=== PATIENT | female | born 1975 | race Caucasian/White ===

== ENCOUNTER → 2018-10-26 | Outpatient (REF) | payer OTHER | LOC: M LAB REF 12:04 | PROVIDERS: ATTEND Internal Medicine Endocrinology, Diabetes & Metabolism | DX: E04.1 Nontoxic single thyroid nodule (principal) ==

== ENCOUNTER → 2019-10-30 | Outpatient (REF) | payer OTHER | LOC: M LAB REF 12:42 | PROVIDERS: ATTEND Radiology Diagnostic Radiology | DX: D48.9 Neoplasm of uncertain behavior, unspecified (principal) ==

== ENCOUNTER 2020-11-13 13:01 | Emergency (ER) | payer OTHER ==
[~2020-11-13] VITALS: Ht 157.5 cm; Wt 91.2 kg
[2020-11-13] MEDS ORDERED: SYNT75TA PO (13:12)
[2020-11-13] MEDS ORDERED: VITA50005 PO (13:12)
[2020-11-13] MEDS ORDERED: AUGM875T28 PO (14:09)
[2020-11-13] MEDS ORDERED: BOOSTRIX/ADACEL VACCINE (DIPHTH/PERTUSS/ACELL/TETANUS) 0.5ML SYR IM ONE (14:10)
== END 2020-11-13 14:47 | disposition home or self-care (01) ==
LOC: MERGE 13:01 → M ED 13:01
DX: S40.871A Other superficial bite of right upper arm, initial encounter (principal); W55.01XA Bitten by cat, initial encounter; Y92.099 Unspecified place in other non-institutional residence as the place of occurrence of the external cause; Y93.9 Activity, unspecified; Y99.9 Unspecified external cause status; E03.9 Hypothyroidism, unspecified; Z87.891 Personal history of nicotine dependence

== ENCOUNTER → 2021-03-18 | Outpatient (CLI) | payer OTHER ==
[~2021-03-18] MED LIST: AUGM875T28 PO; ERGO500029 PO; SYNT75TA PO
--- NOTE | 2021-03-18 16:20 | REPMRS ---
Patient History Patient is nulliparous. Family history of breast cancer at age 45 in maternal grandmother. Benign stereotactic core biopsy of the right breast, October 30, 2019. Took hormonal contraceptives for 14 years. Pfizer vaccine 10/28/20 left arm 12/05/20 right arm. Patient states no breast complaints today. Patient has signed MRS History Sheet. Digital Woman Screen Mammo: March 18, 2021 - Exam #: [id number] Bilateral CC and MLO view(s) were taken. Technologist: Bisi Singh, RT FINDINGS: There are scattered fibroglandular densities. Screening. Digital screening (2D) mammography was performed bilaterally in the CC and MLO projections. Additionally, breast tomosynthesis (3D mammography) was performed bilaterally in the CC and MLO projections. Todays exam was compared to the prior exam/exams. By history, the patient has no complaints of a palpable breast abnormality or other significant breast complaints. The breasts are unchanged in size and shape. There are no isamar-soft tissue densities or spiculated masses. There is no internal architectural distortion.Once again, stable benign appearing calcifications are seen. There are no suspicious isamar-calcific clusters. Skin thickening or nipple retraction is not present. IMPRESSION: BI-RADS Category 2- Benign Findings. There is no evidence of malignant alteration of the breasts. Followup examination recommended in one year. The Volpara volumetric breast density category is B, there are scattered areas of fibroglandular densities. This mammogram was read with the assistance of [employer],an FDA approved computer aided detection system for mammography. The lifetime Tyrer-Cuzick score is 17.5 % Negative x-ray reports should not delay surgical consultation if a dominant or clinically suspicious mass is present. Not all breast cancers can be identified by mammography. Therefore, we recommend that you continue to perform regular breast self-examination and physical examination and then promptly contact your physician of any concerns or changes. Adenosis and dense breasts may obscure an underlying neoplasm. Assessment: BI-RADS/ACR category 2 mammogram. Benign Findings. Recommendation Routine screening mammogram of both breasts in 1 year. Electronically Signed By: Orville Beltran DO 03/18/21 [id number]
== END ==
LOC: M WHC 15:05
PROVIDERS: ATTEND Family Medicine
DX: Z12.31 Encounter for screening mammogram for malignant neoplasm of breast (principal); Z80.3 Family history of malignant neoplasm of breast; R92.1 Mammographic calcification found on diagnostic imaging of breast

== ENCOUNTER → 2022-06-15 | Outpatient (CLI) | payer OTHER | LOC: M WHC 12:11 | PROVIDERS: ATTEND Student in an Organized Health Care Education/Training Program | DX: Z12.31 Encounter for screening mammogram for malignant neoplasm of breast (principal) ==

== ENCOUNTER → 2023-03-29 | Outpatient (CLI) | payer OTHER ==
[~2023-03-29] MED LIST changes: +PROHANCE 279.3MG/ML 15ML VIAL As Ordered ONE; +PROHANCE 279.3MG/ML 5ML VIAL As Ordered ONE
== END ==
LOC: M RAD 09:07
PROVIDERS: ATTEND Physician Assistant
DX: R90.89 Other abnormal findings on diagnostic imaging of central nervous system (principal)

== ENCOUNTER → 2023-11-25 | Outpatient (CLI) | payer OTHER ==
[~2023-11-25] MED LIST changes: -PROHANCE 279.3MG/ML 15ML VIAL As Ordered ONE; -PROHANCE 279.3MG/ML 5ML VIAL As Ordered ONE
== END ==
LOC: M WHC 09:00
PROVIDERS: ATTEND Family Medicine
DX: Z12.31 Encounter for screening mammogram for malignant neoplasm of breast (principal)

== ENCOUNTER → 2024-07-23 | Outpatient (CLI) | payer OTHER ==
[~2024-07-23] MED LIST changes: +ESTR62CR; +HYDR1CAP25 PO; +MAGN250T7 PO; +NORE5TAB PO
== END ==
LOC: M CARPUL 15:38
PROVIDERS: ATTEND Internal Medicine
DX: R01.1 Cardiac murmur, unspecified (principal)

== ENCOUNTER 2024-07-24 09:54 | Day surgery (SDC) | payer OTHER ==
[~2024-07-24] VITALS: Ht 160 cm; Wt 82.6 kg
[~2024-07-24 09:54] MED LIST changes: +LIDOCAINE 2% 100MG/5ML SDV (FOR ANES.) As Ordered ONE; +MIDAZOLAM INJ 2MG/2ML VIAL As Ordered ONE; +ONDANSETRON 4MG 2ML VIAL As Ordered ONE; +fentaNYL 100 MCG/2 ML INJECTION As Ordered ONE; +propofoL 200 MG/20 ML VIAL As Ordered ONE
[2024-07-24] MEDS ORDERED: NS 1,000 ML IV SCH (10:15)
[2024-07-24] MEDS: ACETAMINOPHEN 500 MG TAB PO ONE (11:13)
[2024-07-24] MEDS: SCOPOLAMINE 1MG TRANSDERMAL PATCH TOP ONE (11:14)
[2024-07-24] MEDS: LIDOCAINE 1% SDV 30ML VIAL As Ordered ONE (12:00)
[2024-07-24] MEDS ORDERED: KETOROLAC 60MG 2ML VIAL As Ordered ONE (12:12)
[2024-07-24] MEDS: SILVER NITRATE APPLICATOR (1 = QTY 10) As Ordered ONE (12:34)
[2024-07-24 13:36] VITALS: BP 117/60; TEMP 97.8; O2SAT 100
== END 2024-07-24 13:41 | disposition home or self-care (01) ==
LOC: M SDC 09:54
PROVIDERS: ATTEND General Practice
DX: N84.0 Polyp of corpus uteri (principal); E03.9 Hypothyroidism, unspecified; K21.9 Gastro-esophageal reflux disease without esophagitis; F41.9 Anxiety disorder, unspecified; Z79.899 Other long term (current) drug therapy; Z87.891 Personal history of nicotine dependence
CPT/HCPCS: 36415; 58558; 81025; 86850; 86900; 86901; 88305; J1100; J1885; J2250; J2405; J3010

== ENCOUNTER 2024-11-14 07:02 | Day surgery (SDC) | payer OTHER ==
[~2024-11-14] VITALS: Ht 160 cm; Wt 82.6 kg
[~2024-11-14 07:02] MED LIST changes: -ESTR62CR; +ESTR62CR VG; -MIDAZOLAM INJ 2MG/2ML VIAL As Ordered ONE; -ONDANSETRON 4MG 2ML VIAL As Ordered ONE; +TRAZ-252 PO; -fentaNYL 100 MCG/2 ML INJECTION As Ordered ONE
[2024-11-14 08:44] VITALS: BP 96/55; O2SAT 100
== END 2024-11-14 08:51 | disposition home or self-care (01) ==
LOC: M OPP 07:02
PROVIDERS: ATTEND Internal Medicine Gastroenterology
DX: Z12.11 Encounter for screening for malignant neoplasm of colon (principal); K64.0 First degree hemorrhoids; E03.9 Hypothyroidism, unspecified; K21.9 Gastro-esophageal reflux disease without esophagitis; F41.9 Anxiety disorder, unspecified; Z91.040 Latex allergy status; Z91.048 Other nonmedicinal substance allergy status; Z79.890 Hormone replacement therapy; Z79.899 Other long term (current) drug therapy

== ENCOUNTER → 2024-12-21 | Outpatient (CLI) | payer OTHER ==
[~2024-12-21] MED LIST changes: -LIDOCAINE 2% 100MG/5ML SDV (FOR ANES.) As Ordered ONE; -propofoL 200 MG/20 ML VIAL As Ordered ONE
== END ==
LOC: M WHC 12:34
PROVIDERS: ATTEND Family Medicine
DX: Z12.31 Encounter for screening mammogram for malignant neoplasm of breast (principal)